=== PATIENT | female | born 1960 | race Caucasian/White ===

== ENCOUNTER → 2017-04-19 | Outpatient (CLI) | payer OTHER ==
[~2017-04-19] MED LIST: NO MEDICATIONS
--- NOTE | ~2017-04-19 | MY29 ---
[facility] A Service of [facility] RADIOLOGY TEXT RESULTS PATIENT: VLADIMIR CAROLINA LOCATION: [facility] : 64 UNIT #: [id number] AGE: [address]: Yonatan Hancock MD SEX: F ORDER DR: [id number] [facility] [address] [place], [place] [address] [id number] O MR#: [id number] Acc #: [id number] NAME: VLADIMIR CAROLINA : 1960 SEX: F STUDY DATE/TIME: 04/19/2017 7:46 UNIT: [facility] ROOM: STUDY DESCRIPTION: MY [facility] SCREENING W/ CAD BILAT Attending Physician: Yonatan Hancock M.D. Referring Physician: Yonatan Hancock M.D. Ordering Physician: Yonatan Hancock M.D. Primary Care Physician: Yonatan Hancock M.D. MEDICAL IMAGING REPORT This report is preliminary unless electronic signature is present EXAM Digital screening mammogram with CAD. INDICATION Routine screening. PROCEDURE Bilateral CC and MLO views obtained on a digital mammography unit. FDA-approved CAD device utilized. COMPARISON 03/14/2016 FINDINGS Scattered fibroglandular density. No dominant mass or suspicious calcification. IMPRESSION Negative screening mammograms. Screening interval in 1 year is suggested. Patients over the age of 40 are entered into a reminder system with target due date for the next mammogram. A result letter will also be sent to the patient. BIRADS: 1 Negative STAT * RESULT Dictated by... Mike Marrufo M.D. [facility] A Service [facility] RADIOLOGY TEXT RESULTS PATIENT: VLADIMIR CAROLINA LOCATION: [facility] : 64 UNIT #: [id number] AGE: [address]: Yonatan Hancock MD SEX: F ORDER DR: THIS IS AN ELECTRONICALLY VERIFIED REPORT Mike Marrufo M.D. at 04/25/2017 7:17 AM JUAN/radha TD: 04/24/2017 14:04 JOB #: [id number] MEDICAL IMAGING REPORT Page 1 of 1 COPY
== END | disposition home or self-care (01) ==
LOC: CWCC 07:18
DX: Z12.31 Encounter for screening mammogram for malignant neoplasm of breast (principal)
CPT/HCPCS: G0202